=== PATIENT | male | born 1990 | race Caucasian/White ===

== ENCOUNTER → 2016-10-28 | Outpatient (CLI) | payer OTHER ==
[2016-10-28 14:52] LABS: CH 31.8; CHCM 34.2; HCT 44.9 % (39.0-53.0); HDW 2.69; HGB 14.8 gm/dL (13.0-17.5); MCH 30.8 pg (25.0-35.0); MCV 93.3 fL (80.0-100.0); Mean Platelet Volume 7.4; RBC 4.81 m/uL (4.30-5.90); RDW 13.4 % (11.5-15.5); WBC 9.7 k/uL (3.8-10.6)
[2016-10-28 15:12] LABS: ALT 34 U/L (21-72); AST 33 U/L (17-59); Alkaline Phosphatase 99 U/L (38-126); Anion Gap 9 mmol/L; Blood Urea Nitrogen 11 mg/dL (9-20); C Reactive Protein 6.1 mg/L (<10.0); Calcium 9.7 mg/dL (8.4-10.2); Carbon Dioxide 27 mmol/L (22-30); Chloride 105 mmol/L (98-107); Glucose 86 mg/dL (74-99); Non-African American GFR(MDRD) >60 (>60 ml/min/1.73 sqM); Potassium 4.6 mmol/L (3.5-5.1); Sodium 141 mmol/L (137-145); Total Bilirubin 0.4 mg/dL (0.2-1.3); Total Protein 7.5 g/dL (6.3-8.2)
[2016-10-28 19:03] LABS: Erythrocyte Sedimentation Rate 5 mm/hr (0-15)
== END | disposition home or self-care (01) ==
LOC: LABWHC1 14:24
DX: K50.00 Crohn's disease of small intestine without complications (principal)
CPT/HCPCS: 36415; 80053; 82306; 85027; 85652; 86140

== ENCOUNTER 2016-11-26 11:36 | Day surgery (SDC) | payer OTHER ==
[2016-11-26] MEDS ORDERED: LACTATED RINGERS 1,000 ML IV SCH (11:39)
[2016-11-26 12:02] VITALS: RESP 18; TEMP 97.9
[2016-11-26] MEDS ORDERED: LIDOCAINE 1% 20 ML VIAL (10MG/ML) FOR IV START INTRADERMA ONE (12:02)
[2016-11-26] MEDS ORDERED: PROPOFOL 10 MG/ML 20 ML VIAL IV ONE (12:49)
[2016-11-26] MEDS ORDERED: MIDAZOLAM 2 MG/2 ML VIAL ONE (12:49)
[2016-11-26] MEDS ORDERED: LIDOCAINE 1% INJ 10MG/ML (20 ML MDV) ONE (12:49)
--- NOTE | 2016-11-26 13:35 | P.PCN ---
Date of Procedure: 11/26/16 Procedure(s) Performed: Procedures: 1. Esophagogastroduodenoscopy and biopsy. 2. Total colonoscopy and biopsy. Preoperative diagnosis: Abdominal pains, altered bowel habits, weight loss and history of ileitis. Postoperative diagnosis: 1. Small sliding hiatal hernia with no definite esophagitis or complicated reflux disease. 2. Mild antral gastritis. 3. Normal colon and terminal ileum. Preparation: HalfLytely prep. Sedation: Was provided by anesthesia. Brief clinical history: The patient is a 26-year-old male who I have evaluated in the office regarding abdominal symptoms and diarrhea and weight loss. His mother was concerned that he is losing weight and because of his history of ileitis. The patient had endoscopy back in November 2013 and that showed indurated terminal ileum and the biopsies showed focal acute and chronic ileitis and increased submucosal lymphocytes. I scheduled this evaluation to reevaluate his terminal ileum and rule out celiac disease as well. Procedure: With the patient on his left lateral decubitus position and after informed consent and adequate sedation, I passed the Olympus-GIF 160 video upper endoscope through the cricopharyngeus down the esophagus. There was a small sliding hiatal hernia and some erythema in the distal esophagus but no ulcers, strictures or Ventura's esophagus. The endoscope was then passed into the stomach which was insufflated with air and inspected in detail including the retroflex view in the cardia. There was some mottling and erythema in the antrum but no ulcers or erosions. Pyloric channel, duodenal bulb, post bulbar area and descending duodenum appeared within normal limits. Because of his symptoms, I obtained biopsies from the duodenum, antrum and esophagus then the endoscope was withdrawn and I proceeded with the colonoscopy. Perianal area did not show any fissures or fistulas. There were no masses felt on digital rectal examination. The Olympus PCF H190 DL video colonoscope was then inserted in the rectum in the usual fashion and advanced to the cecum. I intubated the ileocecal valve and examined 20-30 centimeters of terminal ileum. Terminal ileum and colon appeared healthy with no edema, erythema, friability , ulceration, exudation or spontaneous bleeding. No polyps or tumors were seen or any obvious diverticular disease or other pathology. I obtained multiple biopsies from the terminal ileum and I obtained multiple biopsies randomly from the colon before the endoscope was withdrawn. The patient tolerated the procedure well. Plan: The patient and his mother were reassured. I would await biopsy results and make further recommendations. I will keep you updated on his progress.
[2016-11-26 13:45] VITALS: BP 92/55; PULSE 60
== END 2016-11-26 14:26 | disposition home or self-care (01) ==
LOC: ORWHC2ENDO 11:36
DX: K29.50 Unspecified chronic gastritis without bleeding (principal); K20.0 Eosinophilic esophagitis; R19.4 Change in bowel habit; R63.4 Abnormal weight loss; Z87.19 Personal history of other diseases of the digestive system; J45.909 Unspecified asthma, uncomplicated; Z79.51 Long term (current) use of inhaled steroids
CPT/HCPCS: 88305; 88342; 45380; 43239; J2250; J2001; J2704